=== PATIENT | male | born 1970 | race Caucasian/White ===

== ENCOUNTER 2016-07-27 14:36 | Emergency (ER) | payer BC, OTHER ==
[2016-07-27 14:49] VITALS: BP 154/87
[2016-07-27] MEDS ORDERED: Cyclobenzaprine TAB* 10 MG PO ONE (16:38)
[2016-07-27] MEDS ORDERED: predniSONE TAB* 20 MG PO ONE (16:38)
[2016-07-27] MEDS ORDERED: Ketorolac INJ* 60 MG/2 ML VIAL IM ONE (16:38)
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
== END 2016-07-27 17:17 | disposition home or self-care (01) ==
LOC: ED 14:36
DX: M54.30 Sciatica, unspecified side (principal); M62.830 Muscle spasm of back
CPT/HCPCS: 96372; 99282; J1885; J7512

== ENCOUNTER 2016-07-30 11:28 | Emergency (ER) | payer OTHER ==
[2016-07-30 14:40] VITALS: BP 121/84
--- NOTE | 2016-07-30 15:09 | UC ---
Back Pain HPI - HPI Summary HPI Summary: complain of lower back pain 2004 herniated disc L5-S1 recent exacerbation at 07/26 after lifting patients at work started to have muscle spasms on 07/26/16 took ibuprofen and then 1 hour later pain started shooting down his leg and into his left heel so he went to ED symptoms have lessened since exacerbation still has pain in right lower back and shooting pain into right side of buttocks bending back kumar lessens pain bending forward increases pain taking flexeril and predisione without difficulty out of work until this tuesday- PCP doesn't do worker's comp wants to light duty needs PT needs referral to neuro/ortho denies fever and incontinence- - History of Current Complaint Chief Complaint: UCBackPain Stated Complaint: RECHECK BACK INJURY Time Seen by Provider: 07/30/16 14:35 Hx Obtained From: Patient - Allergies/Home Medications Allergies/Adverse Reactions: Allergies Allergy/AdvReac Type Severity Reaction Status Date / Time No Known Allergies Allergy Verified 07/27/16 17:06 Home Medications: Home Medications Ibuprofen TAB* [Advil TAB*] 400 mg PO Q6HR PRN 07/30/16 [History Confirmed 07/30] PMH/Surg Hx/FS Hx/Imm Hx Endocrine History Of: Denies: Diabetes, Thyroid Disease Cardiovascular History Of: Reports: Hypertension - 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 Right knee meniscus repair x2. Inguinal herna repair. Splenectomy - Family History Known Family History: Positive: Cardiac Disease - CAD (father in 60's), Hypertension - Both parents, Other - Mother: High blood glucose, deafness. Father: low blood glucose - Social History Alcohol Use: Weekly Substance Use Type: None Smoking Status (MU): Never Smoked Tobacco - Immunization History Most Recent Influenza Vaccination: 2016/2016 season Most Recent Tetanus Shot: UTD Review of Systems Constitutional: Negative Skin: Negative Eyes: Negative ENT: Negative Respiratory: Negative Cardiovascular: Negative Gastrointestinal: Negative Genitourinary: Negative Motor: Negative Neurovascular: Negative Musculoskeletal: Other: - lower back pain Neurological: Numbness Psychological: Negative All Other Systems Reviewed And Are Negative: Yes Physical Exam Triage Information Reviewed: Yes Appearance: No Pain Distress, Well-Nourished Vital Signs: Initial Vital Signs Temp 98.8 F 07/30/16 14:24 Pulse 81 07/30/16 14:24 Resp 16 07/30/16 14:24 BP 121/84 07/30/16 14:24 Pulse Ox 97 07/30/16 14:24 Vital Signs Reviewed: Yes Eyes: Positive: Conjunctiva Clear ENT: Positive: Pharynx normal, TMs normal Neck: Positive: No Lymphadenopathy Respiratory: Positive: Lungs clear, Normal breath sounds, No respiratory distress Cardiovascular: Positive: RRR, No Murmur, Pulses Normal Abdomen Description: Positive: Nontender, Soft Bowel Sounds: Positive: Present Musculoskeletal: Positive: No Edema, Other: - Spine have no noted deformities or signs of inflammation. Curvature of thoracic, and lumbar spine are within normal limits. Bony features of shoulders and hips are of equal height bilaterally. Posture is upright, and gait is smooth and normal. Spinous processes of T1-L5 palpable, midline, and non-tender; No step-offs. right lower lumbar paraspinal tenderness. Flexion, extension, and rotation of the remaining spinal column is not within normal limits. Patient can flex forward and cannot reach toes d/t pain. Lateral bending causes no discomfort when bending to the right and left side. Neurological: Positive: Other: - SLR negative, patellar relfexes intact Psychological Exam: Normal Skin Exam: Normal Back Pain Course/Dx - Course Course Of Treatment: no red flags to warrant imaging - Differential Dx/Diagnosis Differential Diagnosis/HQI/PQRI: Herniated Disc, Strain, Sprain Provider Diagnoses: lower back pain with radiculopathy Discharge - Discharge Plan Condition: Stable Disposition: HOME Patient Education Materials: Lumbar Radiculopathy (ED) Forms: *Work Release Referrals: Non Staff,Doctor [Medical Doctor] - [facility] [place] [facility] [Outside] Tobias Steele MD [Medical Doctor] - Additional Instructions: Your blood pressure is pre-hypertensive reading. Please contact your primary care provider within 1 day -4 weeks for further evaluation. Start flexeril as directed. Do not drink alcohol or drive while taking flexeril. Please call physical therapy and Dr Steele for further evaluation and treatment. Take ibuprofen for fever or pain. Increase fluids and rest. Please review your discharge instructions. If your symptoms do not improve please call your primary care provider or return to urgent care.
== END 2016-07-30 15:19 | disposition home or self-care (01) ==
LOC: UCEAST 11:28
DX: M54.16 Radiculopathy, lumbar region (principal); I10 Essential (primary) hypertension
CPT/HCPCS: 99211; G0463

== ENCOUNTER 2017-11-10 15:43 | Emergency (ER) | payer BC ==
[2017-11-10] MEDS ORDERED: Ondansetron INJ* 2 MG/ML VIAL IV ONE (16:13)
[2017-11-10] MEDS ORDERED: Morphine VIAL* 4 MG/ML VIAL (1 ml vial) IV ONE (16:14)
[2017-11-10] MEDS ORDERED: NS 0.9% 1000 ML* 1,000 ML IV ONE (16:14)
[2017-11-10] MEDS ORDERED: Morphine INJ** 4 MG/ML 1 ML CARPUJECT IV ONE (16:23)
[2017-11-10 17:05] LABS: ABS Basophils 0.1 10^3/ul (0-0.2); ABS Eosinophils 0.1 10^3/ul (0-0.6); ABS Lymphocytes 2.2 10^3/ul (1.0-4.8); ABS Monocytes 0.7 10^3/ul (0-0.8); ABS Neutrophils 8.9 10^3/ul (1.5-7.7); ABS Nucleated RBC 0 10^3/ul; Eosinophil % 0.5 % (0-6); Hematocrit 42 % (42-52); Hemoglobin 14.6 g/dl (14.0-18.0); Mean Corpuscular HGB Conc 35 g/dl (31-36); Mean Corpuscular Hemoglobin 32 pg (27-31); Mean Corpuscular Volume 92 fL (80-94); Mean Platelet Volume 8.2 um3 (7.4-10.4); Nucleated Red Blood Cells % 0.1; Platelet Count 372 10^3/ul (150-450); Red Blood Count 4.55 10^6/ul (4.00-5.40); Red Cell Distribution Width 14 % (10.5-15)
[2017-11-10 17:16] LABS: INR 0.94 (0.77-1.02)
[2017-11-10 17:20] LABS: EGFR Non-African American 74.3 (>60)
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
[2017-11-10] MEDS ORDERED: Morphine INJ* 2 MG/ML 1 ML CARPUJECT IV ONE (17:34)
[2017-11-10] MEDS ORDERED: Iohexol 300* (CONTRAST) 10 ML SDV IV ONE (17:43)
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
[2017-11-10] MEDS ORDERED: Ketorolac INJ* 30 MG/ML 1 ML VIAL IV PUSH ONE (18:43)
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
[2017-11-10 19:41] VITALS: BP 156/86
== END 2017-11-10 19:41 | disposition home or self-care (01) ==
LOC: ED 15:43
DX: R07.89 Other chest pain (principal); Z04.1 Encounter for examination and observation following transport accident; Z90.81 Acquired absence of spleen; Z82.49 Family history of ischemic heart disease and other diseases of the circulatory system
CPT/HCPCS: 36415; 70450; 71045; 71260; 72125; 74177; 80053; 83690; 84484; 85025; 85610; 85730; 93005; 96374; 96375; 99283; J1885; J2270; J2405; Q9967